=== PATIENT | female | born 1940 | race Two or more races ===

== ENCOUNTER 2022-01-30 02:22 | Emergency (ER) | payer MEDICARE, OTHER ==
[~2022-01-30] VITALS: Ht 154.9 cm; Wt 41.3 kg
--- NOTE | 2022-01-30 02:50 | NUR ---
TO ER BED 11. [facility] [id number] FROM [facility] FOR UNWITNESSED GLF 2 DAYS AGO. C/O HEADACHE AND L CLAVICLE PAIN. RR EVEN AND NON LABORED. CONNECTED TO POX AND HEART MONITOR. AWAITING MD AVNIA
--- NOTE | 2022-01-30 05:55 | NUR ---
[facility] CALLED TO TRANSFER PT BACK TO FACILITY, ETA APPROXIMATLY [phone]
--- NOTE | 2022-01-30 06:31 | NUR ---
CALLED FACILITY TO GIVE REPORT. THEY ARE NOW REQUESTING R HIP XRAY. AWARE
--- NOTE | 2022-01-30 07:58 | NUR ---
nurse from [facility] not picking up the phone to get report.
--- NOTE | 2022-01-30 08:38 | NUR ---
CALLED [facility] NEW ETA [phone] PER DINA.
--- NOTE | 2022-01-30 09:22 | NUR ---
picked up by ambulance sending back to facility
[2022-01-30 09:23] VITALS: BP 128/71
== END 2022-01-30 09:31 ==
LOC: ER 02:36
DX: S09.90XA Unspecified injury of head, initial encounter (principal); M25.519 Pain in unspecified shoulder; I10 Essential (primary) hypertension; E11.51 Type 2 diabetes mellitus with diabetic peripheral angiopathy without gangrene; E03.9 Hypothyroidism, unspecified; Z88.8 Allergy status to other drugs, medicaments and biological substances; W18.30XA Fall on same level, unspecified, initial encounter; Y93.89 Activity, other specified; Y92.89 Other specified places as the place of occurrence of the external cause; Y99.8 Other external cause status
CPT/HCPCS: 70450-TC; 71045-TC; 73502